=== PATIENT | male | born 1980 | race African-American/Black ===

== ENCOUNTER 2018-10-21 19:02 | Emergency (ER) | payer SELFPAY ==
[~2018-10-21] VITALS: Ht 185.4 cm; Wt 72.8 kg
[~2018-10-21 19:02] MED LIST: NAPR-985 PO
[2018-10-21 19:13] VITALS: Ht 185.4 cm; Wt 72.8 kg
[2018-10-21] MEDS ORDERED: SOD CHLORIDE 0.9% 100 ML ONE (22:30)
[2018-10-21] MEDS ORDERED: IODIXANOL LOCM 100 ML BTL ONE (22:30)
[2018-10-21 23:57] VITALS: BP 116/73; PULSE 57; RESP 20
== END 2018-10-21 23:58 | disposition home or self-care (01) ==
LOC: FTE 19:02
DX: R10.32 Left lower quadrant pain (principal); R19.09 Other intra-abdominal and pelvic swelling, mass and lump
CPT/HCPCS: 72193; 80053; 85025; 99284; Q9967